=== PATIENT | female | born 1955 | race Caucasian/White ===

== ENCOUNTER 2016-09-24 09:15 | Emergency (ER) | payer BC ==
[~2016-09-24] VITALS: Ht 162.6 cm; Wt 91.0 kg
[2016-09-24] MEDS ORDERED: KETOROLAC 30 MG/ML (TORADOL) 1 ML VIAL IV ONE (09:50)
[2016-09-24 10:24] LABS: MEAN CORPUSCULAR HGB CONC 32.9 g/dL (31.0-37.0); MEAN CORPUSCULAR VOLUME 80 FL (80-100); PLATELET COUNT 282 10^3uL (150-450); WHITE BLOOD COUNT 6.89 10^3uL (4.0-11.0)
[2016-09-24 10:36] LABS: ALBUMIN 4.4 g/dL (3.4-5.0); ALKALINE PHOSPHATASE 94 U/L (38-126); ANION GAP 13.6 MEQ/L (3-15); BUN/CREATININE RATIO 29 (10-20); CALCULATED IONIZED CALCIUM 3.8 mg/dL (3.8-4.6); CREATINE KINASE 91 U/L (30-135); TOTAL PROTEIN 7.9 g/dL (6.4-8.5)
[2016-09-24 10:37] LABS: BAND NEUTROPHILS % 0 % (0-6); LYMPHOCYTES # 1.5 #; MEAN CORPUSCULAR HEMOGLOBIN 26.4 PG (26.0-34.0); SEGMENTED NEUTROPHILS % 66 % (51-67)
[2016-09-24 10:38] LABS: EOSINOPHILS % 1 % (0-4); MONOCYTES # 0.4 #; MONOCYTES % 7 % (3-11); RBC MORPH NORMAL (NORMAL); TOTAL CELLS COUNTED 100
[2016-09-24 11:07] LABS: CLARITY,URINE Clear; COLOR,URINE Yellow; GLUCOSE, URINE (UA) Negative (Negative); LEUKOCYTE ESTERASE ,URINE Negative (Negative); PH,URINE 5.5 (5.0 - 8.0); UROBILINOGEN,URINE 0.2 mg/dL (0.2-1.0)
[2016-09-24 11:08] LABS: BILIRUBIN,URINE 1+ (Negative)
--- NOTE | 2016-09-24 11:12 | NUR ---
PT STATES HER PAIN HAD COME DOWN TO AN 8/10 THEN SHE GOT UP TO THE BATHROOM WHICH MADE IT WORSE (NO RATE GIVEN) & NOW PAIN AT 8/10. DR ARROYO NOTIFIED. CL
[2016-09-24 11:20] LABS: AMPHETAMINE SCREEN, URINE Negative (Negative); CANNABINOID SCREEN, URINE Negative (Negative); METHAMPHETAMINE SCREEN URINE S NEGATIVE (NEGATIVE); OPIATE SCREEN URINE Positive (Negative)
[2016-09-24 11:21] LABS: PROPOXYPHENE STAT NEGATIVE (NEGATIVE)
--- NOTE | 2016-09-24 11:43 | NUR ---
PT O2 WNL WHILE HERE IN ED. CL
[2016-09-24 11:44] VITALS: BP 128/90
== END 2016-09-24 11:49 | disposition home or self-care (01) ==
LOC: ED 09:21 → MERGE 09:21 → ED 11:49
DX: M94.0 Chondrocostal junction syndrome [Tietze] (principal); R07.89 Other chest pain
CPT/HCPCS: 36415; 71010; 80053; 80307; 81003; 82550; 82553; 83880; 84443; 84484; 85025; 86140; 93005; 96374; 99285; J1885; 93010; 99284